=== PATIENT | male | born 1955 | race Caucasian/White ===

== ENCOUNTER → 2017-07-06 10:38 | Outpatient (CLI) | payer OTHER, SELFPAY ==
--- NOTE | 2017-07-06 10:53 | XR_ITS ---
XR chest 2V INDICATION: Contusion to left lung COMPARISON: PA and lateral chest 10/19/2011 FINDINGS: The cardiovascular structures are unremarkable. No mediastinal shift or hilar mass is evident. The lungs are well expanded and clear bilaterally. The costophrenic sulci are sharp. No significant bony anomalies are apparent other than a hypoplastic left first rib. IMPRESSION: Negative chest.
== END ==
PROVIDERS: PCP Family Medicine; Visit Provider Psychiatry & Neurology Sleep Medicine
DX: S27.321A Contusion of lung, unilateral, initial encounter (principal)
CPT/HCPCS: 71046

== ENCOUNTER → 2020-06-14 10:56 | Outpatient (CLI) | payer MEDICARE, SELFPAY ==
--- NOTE | 2020-06-14 11:02 | XR_ITS ---
PROCEDURE: XR CHEST PORTABLE CLINICAL HISTORY: COVID TEST COMPARISON: CR CXR2V XR chest 2V from 07/06/2017 FINDINGS: The cardiomediastinal silhouette and pulmonary vascularity are within normal limits. The lungs are clear without infiltrates, suspicious nodules, or pleural effusions. No acute bony abnormalities. IMPRESSION: No acute findings. Dictated by: Kamila Phoenix 06/14/2020 11:39 Kamila Phoenix in [facility] 06/14/2020 11:39
[2020-06-14 11:35] LABS: Basophils % 0.1 % (0.1-2.0); Eosinophils # 0.2 K/mm3 (0.0-0.4); Eosinophils % 1.5 % (0.1-12.0); Hematocrit 41.9 % (42.0-52.0); Hemoglobin 13.6 g/dL (14.1-18.0); Lymphocytes # 1.1 K/mm3 (0.7-4.5); Lymphocytes % 9.8 % (10-50); Mean Corpuscular HGB Conc 32.5 g/dL (31.8-35.4); Mean Corpuscular Hemoglobin 29.1 pg (27.0-31.2); Mean Corpuscular Volume 89.5 fl (80-94); Mean Platelet Volume 7.3 fl (7.4-10.4); Monocytes # 0.9 K/mm3 (0.1-1.0); Monocytes % 8.6 % (1.7-9.3); Neutrophils # 8.8 K/mm3 (1.8-7.8); Neutrophils % 80.1 % (37.0-80.0); Platelet Count 252 K/mm3 (142-424); Red Blood Count 4.68 M/mm3 (4.60-6.20); Red Cell Distribution Width 13.3 % (11.5-17.5); White Blood Count 10.9 K/mm3 (4.8-10.8)
== END ==
PROVIDERS: PCP Family Medicine; Visit Provider Nurse Practitioner
DX: Z20.822 Contact with and (suspected) exposure to COVID-19 (principal); D72.829 Elevated white blood cell count, unspecified
CPT/HCPCS: 36415; 71045; 85025; U0003

== ENCOUNTER → 2020-11-14 08:37 | Outpatient (CLI) | payer MEDICARE, SELFPAY ==
[2020-11-14 09:25] VITALS: PULSE 60; PULSE 66
== END ==
PROVIDERS: PCP Family Medicine; Visit Provider Internal Medicine Pulmonary Disease
DX: R06.00 Dyspnea, unspecified (principal)
CPT/HCPCS: 94060; 94618; 94640; 94726; 94729

== ENCOUNTER → 2020-11-15 06:17 | Outpatient (CLI) | payer MEDICARE, SELFPAY ==
--- NOTE | 2020-11-15 06:19 | CT_ITS ---
PROCEDURE: CT CHEST WO CON CLINICAL INDICATION: SOB COMPARISON: No exams were available for comparison TECHNIQUE: Axial images obtained with sagittal and coronal reformats. All CT scans at the facility use one or more dose reduction, viz: automated exposure control, ma/kV adjustment per patient size (including targeted exams where dose is matched to indication, i.e. head), or iterative reconstruction technique. FINDINGS: HEART AND MEDIASTINAL STRUCTURES: There is mild fusiform dilatation of the ascending aorta measuring 4.3 x 4.2 cm. Increased soft tissue density is present anterior to the ascending aorta and may be due to prominence of the right atrial appendage. Enhanced CT may confirm. Coronary artery calcifications are present. LUNGS AND PLEURAL SPACES: There is hyperinflation with attenuation of the peripheral pulmonary vessels consistent with small airway disease.. There is some mild bronchial thickening. Calcified granuloma is present in the left upper lobe. No suspicious nodules evident. No infiltrates or effusions. In the right upper lobe there is a small pneumatocele measuring approximately 5 mm with some minimal peripheral ground-glass attenuation around the cystic area. BONY STRUCTURES: No acute bony abnormalities apparent. UPPER ABDOMEN: Small hiatal hernia. 9 mm peripheral hypodensity right hepatic lobe segment 7 and may be due to small cyst or hemangioma. There are bilateral renal calculi measuring up to 4 mm on the left and 2 mm on the right. The kidneys are not completely imaged. ADDITIONAL FINDINGS: No other significant abnormalities. IMPRESSION: 1. Hyperexpansion and hyper lucency of the lungs along with mild bronchial thickening consistent with patient's known history of asthma. COPD and bronchitis would be included in the differential diagnosis. 2. Small pneumatocele in the right upper lobe with some minimal peripheral ground-glass attenuation. Consider 3 month follow-up to confirm stability. 3. Mild fusiform dilatation of the ascending aorta at 4.3 x 4.2 cm. 4. Anterior to the ascending aorta and on the right is a crescentic area of soft tissue density measuring 4 cm AP and 1.5 cm transverse and may be related to prominent right atrial appendage. This could be confirmed with enhanced CT of the chest. Adenopathy/mediastinal mass is included in the differential diagnosis. 5. Bilateral nephrolithiasis and other nonacute findings as described above. Dictated by: Chad Callaway MD 11/16/2020 09:47 Chad Callaway MD in [facility] 11/16/2020 09:47
== END ==
PROVIDERS: PCP Family Medicine; Visit Provider Internal Medicine Pulmonary Disease
DX: R05 Cough (principal); R06.02 Shortness of breath
CPT/HCPCS: 71250; 94762

== ENCOUNTER → 2020-11-23 17:11 | Outpatient (CLI) | payer MEDICARE, SELFPAY ==
[2020-11-23 18:02] LABS: Blood Urea Nitrogen 20 mg/dl (9-20); Estimated Glomerular Filt Rate 51 ml/min (>60); GFR (African American) 62 ML/MIN (>60)
[2020-11-23 18:33] LABS: Prostate Specific Ag, Diagnost 3.15 ng/ml (0.0-4.0)
== END ==
PROVIDERS: Visit Provider Family Medicine
DX: R93.89 Abnormal findings on diagnostic imaging of other specified body structures (principal); R97.20 Elevated prostate specific antigen [PSA]
CPT/HCPCS: 36415; 82565; 84153; 84520

== ENCOUNTER → 2020-11-25 11:16 | Outpatient (CLI) | payer MEDICARE, SELFPAY ==
--- NOTE | 2020-11-25 11:17 | CT_ITS ---
PROCEDURE: CT CHEST W CON CLINCAL INDICATION: abn ct/enhanced R06.02 CWS Follow-up abnormal chest CT COMPARISON: CT CT CHEST WO CON from 11/15/2020 TECHNIQUE: IV Contrast: 75ml Isovue 370 Axial images obtained with sagittal and coronal reformats. All CT scans at the facility use one or more dose reduction, viz: automated exposure control, ma/kV adjustment per patient size (including targeted exams where dose is matched to indication, i.e. head), or iterative reconstruction technique. FINDINGS: HEART AND MEDIASTINAL STRUCTURES: Previously there was a soft tissue density noted in the anterior mediastinum anterior to the ascending aorta. This does fill with contrast and represents mild prominence of the right atrial appendage extending anterior to the ascending aorta. No mediastinal adenopathy is evident. There is mild ectasia of the ascending thoracic aorta measuring up to 4 cm. No evidence of central pulmonary embolus LUNGS AND PLEURAL SPACES: There is hyperexpansion. Small pneumatocele is once again noted in the right upper lobe with some minimal haziness around the small pneumatocele not significantly changed. No new abnormalities are evident. BONY STRUCTURES: Mild degenerative change thoracic spine UPPER ABDOMEN: A 9 mm hypodensity once again noted in the right hepatic lobe segment 7 unchanged. Nonobstructing left renal calculi are noted ADDITIONAL FINDINGS: No other significant abnormalities. IMPRESSION: Previously noted soft tissue density in the right anterior mediastinum represents a prominent right atrial appendage Mild prominence of the ascending aorta at 4 cm No change small right upper lobe pneumatocele Dictated by: Chad Callaway MD 11/25/2020 14:10 Chad Callaway MD in [facility] 11/25/2020 14:10
== END ==
PROVIDERS: PCP Family Medicine; Visit Provider Family Medicine
DX: R63.4 Abnormal weight loss (principal); R93.89 Abnormal findings on diagnostic imaging of other specified body structures; R97.20 Elevated prostate specific antigen [PSA]
CPT/HCPCS: 71260; Q9967

== ENCOUNTER → 2021-05-19 08:19 | Outpatient (CLI) | payer MEDICARE, SELFPAY ==
--- NOTE | 2021-05-19 08:20 | CT_ITS ---
FINAL REPORT TECHNIQUE: Axial images were obtained from the lung apex to the mid abdomen by computed tomography. Coronal reformatted images were obtained. This study was performed with techniques to keep radiation doses as low as reasonably achievable, (ALARA). Individualized dose reduction techniques using automated exposure control or adjustment of mA and/or kV according to the patient's size were employed. CLINICAL HISTORY: pulmonary nodule COMPARISON: November 15, 2020 and November 25, 2020 FINDINGS: There is no axillary adenopathy. There is no hilar or mediastinal adenopathy. Heart size is normal. There is ectasia of the ascending aorta measuring 4.2 cm and previously measured 4.0 cm. There is no pericardial or pleural effusion. Limited images of the upper abdomen reveal several, small nonobstructing renal stones. The lung window images demonstrate mild emphysema. There is mild scarring. Again noted is a 6 mm pneumatocele in the right upper lobe with mild surrounding ground-glass opacities, stable. No new mass or nodule is identified. IMPRESSION: Again noted 6 mm pneumatocele in the right upper lobe with mild surrounding ground-glass opacities, stable. Ectasia of ascending aorta measuring 4.2 cm, was previously 4.0 cm. Reviewed, Interpreted and Dictated by Vicente Guthrie III, MD Transcribed by Sri Osei Authenticated by Vicente Guthrie III, MD on 05/19/2021 10:26:03 AM [facility]
== END ==
PROVIDERS: PCP Family Medicine; Visit Provider Internal Medicine Pulmonary Disease
DX: R91.1 Solitary pulmonary nodule (principal)
CPT/HCPCS: 71250

== ENCOUNTER → 2021-09-20 07:28 | Outpatient (CLI) | payer MEDICARE, SELFPAY ==
[2021-09-19 19:21] LABS: MANUAL DIFFERENTIAL MANUAL DIFFERENTIAL (MANUAL DIFF)
[2021-09-19 19:43] LABS: Alanine Aminotransferase 14 U/L (12-78); Albumin Level 3.8 g/dl (3.5-5.0); Albumin/Globulin Ratio 1.6 (1.1-1.8); Alkaline Phosphatase 78 U/L (38-126); Amylase 57 U/L (30-110); Anion Gap 13.1 mEq/L (5-15); Aspartate Amino Transferase 25 U/L (17-59); Blood Urea Nitrogen 27 mg/dl (9-20); Calcium 9.5 mg/dl (8.4-10.2); Carbon Dioxide 26 mmol/L (22.0-30.0); Chloride 106 mmol/L (98-107); Estimated Glomerular Filt Rate 47 ml/min (>60); GFR (African American) 57 ML/MIN (>60); Globulin 2.4 g/dL (1.3-3.2); Glucose 100 mg/dl (74-100); Lipase 135 U/L (23-300); Potassium 5.1 mmoL/L (3.5-5.1); Sodium 140 mmol/L (136-145); Total Protein,Serum 6.2 g/dl (6.3-8.2)
[2021-09-19 19:46] LABS: Basophils % 0.4 % (0.1-2.0); Eosinophils # 0.2 K/mm3 (0.0-0.4); Eosinophils % 4.2 % (0.1-12.0); Hematocrit 45.9 % (42.0-52.0); Hemoglobin 13.7 g/dL (14.1-18.0); Lymphocytes # 1.2 K/mm3 (0.7-4.5); Lymphocytes % 25.4 % (10-50); Mean Corpuscular HGB Conc 29.9 g/dL (31.8-35.4); Mean Corpuscular Hemoglobin 28.7 pg (27.0-31.2); Mean Corpuscular Volume 95.9 fl (80-94); Mean Platelet Volume 9.1 fl (7.4-10.4); Monocytes # 0.6 K/mm3 (0.1-1.0); Monocytes % 11.9 % (1.7-9.3); Neutrophils # 2.7 K/mm3 (1.8-7.8); Neutrophils % 58.2 % (37.0-80.0); Platelet Count 282 K/mm3 (142-424); Red Blood Count 4.78 M/mm3 (4.60-6.20); White Blood Count 4.6 K/mm3 (4.8-10.8)
[2021-09-19 19:48] LABS: Bilirubin,Total < 0.1 mg/dl (0.2-1.3)
[2021-09-19 20:14] LABS: Thyroid Stimulating Hormone 2.15 uIU/mL (0.465-4.68)
[2021-09-19 21:35] LABS: Eosinophils % 3 % (0-3); Lymphocytes % 27 % (10-50); Monocytes % 6 % (2-9); Neutrophils % 64 % (42-76); Nucleated Red Blood Cells 1; Platelet Estimate Normal; Total Cells Counted 100
== END ==
PROVIDERS: PCP Family Medicine; Visit Provider Family Medicine
DX: E11.9 Type 2 diabetes mellitus without complications (principal); R63.4 Abnormal weight loss
CPT/HCPCS: 80053; 82150; 83690; 84443; 85007; 85014; 85018; 85048; 85049

== ENCOUNTER → 2021-09-29 06:51 | Outpatient (CLI) | payer MEDICARE, SELFPAY ==
--- NOTE | 2021-09-29 06:54 | CT_ITS ---
FINAL REPORT TECHNIQUE: Axial images through the abdomen and pelvis were performed without intravenous contrast. Oral contrast was administered. This study was performed with techniques to keep radiation doses as low as reasonably achievable, (ALARA). Individualized dose reduction techniques using automated exposure control or adjustment of mA and/or kV according to the patient's size were employed. CLINICAL HISTORY: Weight loss, ORAL CONTRAST ONLY FINDINGS: Abdomen: The lung bases are clear. The liver parenchyma is homogeneous. The gallbladder is present. The spleen, pancreas, and adrenals are unremarkable. There are multitude of bilateral nonobstructing renal stones. Renal stones measure up to 4 mm. There is no hydronephrosis. There are advanced hypertrophic changes of degenerative disc disease in the lower lumbar spine at L3-L4, L4-L5 and L5-S1 with significant bilateral neural foraminal narrowing. Pelvis: The urinary bladder is unremarkable. The appendix is not visualized. There is no pelvic mass or inflammation. IMPRESSION: Bilateral nephrolithiasis. Advanced degenerative disc disease in lower lumbar spine with bilateral neural foraminal narrowing. Reviewed, Interpreted and Dictated by Suresh Batista MD Transcribed by Leonel Lu Authenticated and [facility]
== END ==
PROVIDERS: PCP Family Medicine; Visit Provider Family Medicine
DX: R63.4 Abnormal weight loss (principal); Z68.21 Body mass index [BMI] 21.0-21.9, adult
CPT/HCPCS: 74176

== ENCOUNTER → 2022-02-16 15:51 | Outpatient (CLI) | payer MEDICARE, SELFPAY ==
[2022-02-16 19:50] LABS: Alanine Aminotransferase 17 U/L (12-78); Albumin Level 4.1 g/dl (3.5-5.0); Albumin/Globulin Ratio 1.8 (1.1-1.8); Alkaline Phosphatase 92 U/L (38-126); Amylase 74 U/L (30-110); Anion Gap 11.1 mEq/L (5-15); Aspartate Amino Transferase 31 U/L (17-59); Bilirubin,Total 0.5 mg/dl (0.2-1.3); Blood Urea Nitrogen 24 mg/dl (9-20); Calcium 10.2 mg/dl (8.4-10.2); Carbon Dioxide 29 mmol/L (22.0-30.0); Chloride 106 mmol/L (98-107); Estimated Glomerular Filt Rate 43 ml/min (>60); GFR (African American) 53 ML/MIN (>60); Globulin 2.3 g/dL (1.3-3.2); Glucose 97 mg/dl (74-100); Lipase 156 U/L (23-300); Potassium 5.1 mmoL/L (3.5-5.1); Sodium 141 mmol/L (136-145); Total Protein,Serum 6.4 g/dl (6.3-8.2)
[2022-02-16 20:15] LABS: Prostate Specific Ag Screen 4.2 ng/ml (0.0-4.0)
== END ==
PROVIDERS: PCP Family Medicine; Visit Provider Family Medicine
DX: I10 Essential (primary) hypertension (principal); R63.4 Abnormal weight loss; Z12.5 Encounter for screening for malignant neoplasm of prostate
CPT/HCPCS: 80053; 82150; 83690; 84443; G0103

== ENCOUNTER → 2022-02-21 09:46 | Outpatient (CLI) | payer MEDICARE, SELFPAY ==
--- NOTE | 2022-02-21 09:51 | XR_ITS ---
FINAL REPORT CLINICAL HISTORY: weight loss FINDINGS: TWO-VIEW CHEST The heart size is normal. The mediastinum is normal. The lungs are hyperinflated consistent with COPD. There is no pneumothorax. IMPRESSION: COPD. Reviewed, Interpreted and Dictated by Vicente Guthrie III, MD Transcribed by Elaina Zamora Authenticated and [facility]
== END ==
PROVIDERS: PCP Family Medicine; Visit Provider Family Medicine
DX: R63.4 Abnormal weight loss (principal)
CPT/HCPCS: 71046

== ENCOUNTER → 2022-02-22 11:23 | Outpatient (CLI) | payer MEDICARE, OTHER, SELFPAY ==
--- NOTE | 2022-02-22 11:55 | US_ITS ---
FINAL REPORT CLINICAL HISTORY: neoplasm uncertain behavior bilateral groin, LLQ FINDINGS: US ABDOMINAL LIMITED Limited sonographic images were obtained of the soft tissues in the region of the umbilicus. No mass, hernia, or abnormal fluid collection is identified. IMPRESSION: No mass, hernia, or abnormal fluid collection. If indicated, CT may be helpful. Reviewed, Interpreted and Dictated by Vicente Guthrie III, MD Transcribed by Leonel Lu Authenticated and [facility]
--- NOTE | 2022-02-22 11:55 | US_ITS ---
FINAL REPORT CLINICAL HISTORY: neoplasm uncertain behavior bilateral groin, LLQ FINDINGS: US EXTREMITY, NONVASCULAR, LIMITED, ANATOMIC SPECIFIC Limited sonographic images were obtained of the right inguinal region. There are several borderline sized inguinal lymph nodes that are likely reactive. No hernia is identified. IMPRESSION: No hernia identified. Reviewed, Interpreted and Dictated by Vicente Guthrie III, MD Transcribed by Leonel Lu Authenticated and [facility]
--- NOTE | 2022-02-22 11:55 | US_ITS ---
FINAL REPORT CLINICAL HISTORY: neoplasm uncertain behavior bilateral groin, LLQ FINDINGS: US EXTREMITY, NONVASCULAR, LIMITED, ANATOMIC SPECIFIC Limited sonographic images were obtained of the left inguinal region. There is a probable inguinal hernia containing bowel. IMPRESSION: Probable left inguinal hernia containing bowel. Reviewed, Interpreted and Dictated by Vicente Guthrie III, MD Transcribed by Leonel Lu Authenticated and [facility]
[2022-02-22 12:02] LABS: Basophils % 0.5 % (0.1-2.0); Eosinophils # 0.2 K/mm3 (0.0-0.4); Eosinophils % 3.8 % (0.1-12.0); Hematocrit 44.4 % (42.0-52.0); Hemoglobin 14.2 g/dL (14.1-18.0); Lymphocytes % 21.3 % (10-50); Mean Corpuscular Hemoglobin 30.2 pg (27.0-31.2); Mean Corpuscular Volume 94.4 fl (80-94); Mean Platelet Volume 7.8 fl (7.4-10.4); Monocytes # 0.4 K/mm3 (0.1-1.0); Monocytes % 8.8 % (1.7-9.3); Neutrophils % 65.6 % (37.0-80.0); Platelet Count 276 K/mm3 (142-424); White Blood Count 4.5 K/mm3 (4.8-10.8)
[2022-02-22 12:37] LABS: Chloride 105 mmol/L (98-107); Potassium 4.5 mmoL/L (3.5-5.1); Sodium 141 mmol/L (136-145)
[2022-02-22 12:40] LABS: Alanine Aminotransferase 23 U/L (12-78); Albumin Level 3.8 g/dl (3.5-5.0); Albumin/Globulin Ratio 1.8 (1.1-1.8); Alkaline Phosphatase 89 U/L (38-126); Anion Gap 10.5 mEq/L (5-15); Aspartate Amino Transferase 31 U/L (17-59); Bilirubin,Total 0.3 mg/dl (0.2-1.3); Blood Urea Nitrogen 19 mg/dl (9-20); Calcium 9.4 mg/dl (8.4-10.2); Carbon Dioxide 30 mmol/L (22.0-30.0); Estimated Glomerular Filt Rate 51 ml/min (>60); GFR (African American) 61 ML/MIN (>60); Globulin 2.1 g/dL (1.3-3.2); Glucose 190 mg/dl (74-100); Total Protein,Serum 5.9 g/dl (6.3-8.2)
== END ==
PROVIDERS: PCP Family Medicine; Visit Provider Nurse Practitioner
DX: R10.32 Left lower quadrant pain (principal); D48.7 Neoplasm of uncertain behavior of other specified sites
CPT/HCPCS: 36415; 76705; 76882; 80053; 85025

== ENCOUNTER → 2022-02-27 09:55 | Outpatient (CLI) | payer MEDICARE, OTHER, SELFPAY ==
--- NOTE | 2022-02-27 09:57 | CT_ITS ---
FINAL REPORT TECHNIQUE: Axial CT images were performed from the lung bases through the pubic symphysis. Oral contrast was administered. Coronal reformats were submitted and reviewed. This study was performed with techniques to keep radiation doses as low as reasonably achievable (ALARA). Individualized dose reduction techniques using automated exposure control or adjustment of mA and/or kV according to the patient's size were employed. CLINICAL HISTORY: weight loss oral contrast COMPARISON: September 2021 FINDINGS: Abdomen: The lung bases are clear. There is questionable gastric wall thickening. The liver, spleen and pancreas are unremarkable. There is mild adrenal gland enlargement favoring hyperplasia or adenomas. There are several bilateral nonobstructing renal stones measuring less than 3 mm. There is no hydronephrosis. Pelvis: The appendix is not identified. There are no distal ureteral stones. The urinary bladder is unremarkable. The prostate is diffusely enlarged. There is a left fat containing femoral hernia with stranding of the fat consistent with edema/inflammation that has increased in size since the prior exam. IMPRESSION: Questionable gastric wall thickening. If indicated, upper endoscopy could further evaluate. Interval increase in a left femoral hernia containing fat with stranding within the fat. Bilateral nephrolithiasis. Reviewed, Interpreted and Dictated by Vicente Guthrie III, MD Transcribed by Leonel Lu Authenticated and [facility]
== END ==
PROVIDERS: PCP Family Medicine; Visit Provider Surgery
DX: R63.4 Abnormal weight loss (principal)
CPT/HCPCS: 74176

== ENCOUNTER 2022-03-01 07:15 | Day surgery (SDC) | payer MEDICARE, OTHER, SELFPAY ==
[2022-02-27 14:31] VITALS: BMI 18.3
[2022-03-01] VITALS (11 sets, daily range): BP systolic 105–140; BP diastolic 63–91; PULSE 57–69; RESP 12–18; TEMP 36.4–43; O2SAT 95–99
--- NOTE | 2022-03-01 08:42 | EXP.ANES.CKL ---
[facility] Disclaimer: The information contained in this section may have been updated after the patient was seen, as this information can be updated by other users. Medical History Asthma COPD (chronic obstructive pulmonary disease) Depression Dyspnea on exertion Elevated PSA Hyperlipemia Hypertension Mild persistent asthma Pneumatocele of lung Restless leg syndrome Weight loss Surgical History History of appendectomy History of colonoscopy History of elbow surgery History of right knee joint replacement Hx of discectomy Hx of laminectomy Family History Other Diabetes Hypertension Social History Smoking Status: Former smoker alcohol intake: never substance use type: denies use current occupational status: retired Travel in the last 8 weeks: Inside the [facility] ([place]) household members: spouse housing: house [facility] Anesthesia Checklist Patient Identification Patient Identification: Arm Band and Verbal (Name & ) Structural Data Admitted From: Home Planned Operative Procedure/s: Left Femoral Hernia Repair Consent for Planned Operative Procedure(s) Verified: Yes Verified Documents: Surgical Consent NPO Status Verified Time NPO: 00:00 Chart Verification Results Verified: CBC and BMP Additional verifications Anesthesia Reactions: Yes (nausea) Hx Blood Transfusions: No Blood Transfusion Reaction: No Airway Assessment C-Spine Mobility Assessed: Yes TMJ Mobility Assessed: Yes Dentition: Good Dentition Neurological Assessment Level of Consciousness: Awake, Alert and Appropriate Anesthesia Plan ASA Class: II Anesthesia Type: General
--- NOTE | 2022-03-01 10:40 | P.PNANES_ITS ---
[facility] Anesthesia Record Part I Anesthesia Record I Intake, IV Amount: 300 Estimated blood loss (mL): 10 Urine output (mL): 0 Blood Pressure: 117/68 SaO2: 99 Pulse Rate: 57 Respiratory Rate: 14 Temperature: 98.3 F Patient is:: Drowsy and Oral/Nasal airway Stable to PACU at:: 10:39
--- NOTE | 2022-03-01 10:59 | EXP.OP.NOTE ---
Date of procedure: 03/01/22 Pre-op Diagnosis:: Incarcerated left femoral hernia Post-op Diagnosis:: Same Procedure performed:: Open repair of incarcerated left inguinal hernia with medium Bard prefix mesh plug Excisional biopsy left inguinal lymph node Surgeon:: Vicente Bronson MD REEXAMINER:: Thang Del Valle Anesthesia: GETA Estimated blood loss (mL): 10 Clinical Note:: Patient is a 66-year-old male from [place] referred by Dr. Flanagan for inguinal hernia.? He was seen in the office 2 days ago on 02/28/2022. Patient states that about a week ago he had noted a swelling knot in the left groin area.? However, prior to that he was having some discomfort in the left lower abdomen.? He underwent ultrasounds on 02/22/22.? There are numerous reports of abdominal ultrasound and 2 different extremity ultrasounds.? Abdominal ultrasound is unremarkable.? Right extremity ultrasound reveals some borderline adenopathy.? Left extremity ultrasound reveals findings of probable left inguinal hernia.? Patient states that he has had about a 100 pound unintentional weight loss over a year.? He is scheduled to undergo colonoscopy for screening soon by Dr. Stephens in [place]. When he was seen in the office on 02/28/2022 he had tender mass in the left groin area. This was concerning for possible mass versus incarcerated hernia. He was sent for CT scan that day which revealed findings of left femoral hernia containing fat with stranding. Given the fact that this was a femoral hernia which appeared to be incarcerated plan was made for expeditious repair. Operative findings:: He had an incarcerated left femoral hernia with tiny defect containing fatty tissues. There was no apparent bowel. There was some minor inguinal adenopathy. Operative note:: Consent was obtained and patient was taken to the operating room. He was positioned in supine position. General anesthesia was induced. Aponte catheter was placed. Lower abdomen and perineum were prepped and draped in the standard surgical fashion. Due to the fact that it was unclear on examination of this was a true femoral hernia versus incarcerated direct inguinal hernia incision was made for traditional inguinal hernia repair. Dissection was carried down through subcutaneous tissues. Andreina's fascia was incised. Dissection was carried down to the external oblique muscle. The inguinal ligament was identified. This was consistent with true incarcerated femoral hernia. Plan was made to hopefully avoid opening the inguinal canal and peritoneum. Dissection was carried out inferiorly subcutaneously over the hernia. The neck of the hernia was protected. Once dissection was carried out around the hernia of the peritoneum of the hernia sac was sized. Careful inspection of the contents revealed edema of fatty tissues but no evidence of any bowel. This was able to be reduced. The defect was closed by placing medium sized Bard prefix mesh plug into the defect and securing it to the shelving edge of the inguinal ligament superiorly, lacunar ligament medially, and pectineus fascia inferiorly with 2-0 Prolene. Tissue over the mesh plug was closed with a couple of interrupted 0 Ethibond sutures. At this time inspection of the inguinal area revealed prominent lymph node. Given this finding and due to his weight loss decision was made for excisional biopsy. This was grasped with a [place]. It was dissected free from surrounding tissues using blunt dissection with limited use of Metzenbaum dissection. Small lymphatic vessels were clipped with micro hemoclips. Larger lymphatic was clipped and ligated with a Vicryl tie. This was sent off as a specimen. Femoral fascia was then closed with several interrupted 2-0 Vicryl sutures. Local anesthetic was infiltrated regionally as well as for an inguinal nerve block. There was good hemostasis. Andreina's fascia was closed with a running 3-0 Vicryl. Skin was closed with running 4-0 Monocryl. Dermabond and
--- NOTE | 2022-03-01 11:13 | SUR.PHASEI ---
[id number] called and gave detailed report to Nikko Watkins RN [id number] transported via stretcher to post op. vital signs stable. denies pain at this time. left in stable condition with Nikko Watkins RN at bedside.
[2022-03-01 14:02] LABS: Microscopic,Cath URINE MICROSCOPIC (MICROSCOPIC)
[2022-03-01 15:36] LABS: Appearance,Urine/Cath CLEAR (Clear); Bilirubin,Cath Negative (Negative); Blood, Urine/Cath Negative (Negative); Color,Urine/Cath YELLOW (Yellow); Glucose,Urine/Cath (UA) Negative (Negative); Ketones,Urine/Cath Negative (Negative); Leukocyte Esterase,Cath Negative (Negative); Nitrate,Cath Negative (Negative); PH,Urine/Cath 5.5 (5.0-8.5); Protein,Urine/Cath Negative (Negative); Urobilinogen,Cath 0.2 EU/dl (0.2)
[2022-03-01 15:54] LABS: Squamous Epithelial Ur./Cath Occasional #/hpf (0-5)
--- NOTE | 2022-03-02 11:10 | EXP.ANES.II ---
[facility] Anesthesia Record Part II Anesthesia Record Part II Discharge Time: 11:09 Destination: Outpatient Procedures PACU nurse assessment reviewed?: Yes Patient Condition:: Good Anesthesia Complications:: None Swallowing reflex intact?: Yes Cyanosis?: No Blood Pressure: 121/63 Pulse Rate: 68 Temperature: 98.2 F Mental Status: Alert & Oriented Pain level:: 0 Nausea and/or vomitting:: None Intake, IV Amount: 1,000
[2022-03-02 11:11] VITALS: BP 121/63; PULSE 68; TEMP 36.8
== END 2022-03-01 11:51 | disposition home or self-care (01) ==
PROVIDERS: PCP Family Medicine; Visit Provider Surgery
DX: Z79.899 Other long term (current) drug therapy; K41.30 Unilateral femoral hernia, with obstruction, without gangrene, not specified as recurrent; R59.0 Localized enlarged lymph nodes
CPT/HCPCS: 49553; 81001; 88305; 96374; J2405

== ENCOUNTER → 2022-03-20 13:16 | Outpatient (CLI) | payer MEDICARE, OTHER, SELFPAY ==
--- NOTE | 2022-03-20 13:21 | XR_ITS ---
FINAL REPORT CLINICAL HISTORY: low back pain FINDINGS: LUMBAR SPINE Five views demonstrate no acute fracture. There is advanced degenerative disc disease and facet arthropathy in the lower lumbar spine. There is no malalignment. IMPRESSION: Advanced degenerative changes as above. Reviewed, Interpreted and Dictated by Michelle Chapa MD Transcribed by Elaina Zamora Authenticated and [facility]
== END ==
PROVIDERS: PCP Family Medicine; Visit Provider Family Medicine
DX: M54.50 Low back pain, unspecified (principal)
CPT/HCPCS: 72110

== ENCOUNTER → 2022-07-02 23:22 | Outpatient (CLI) | payer MEDICARE, SELFPAY ==
[2022-07-02 18:19] LABS: Basophils % 0.3 % (0.1-2.0); Eosinophils # 0.2 K/mm3 (0.0-0.4); Eosinophils % 2.8 % (0.1-12.0); Hematocrit 44.5 % (42.0-52.0); Hemoglobin 14.1 g/dL (14.1-18.0); Lymphocytes % 17.8 % (10-50); Mean Corpuscular HGB Conc 31.8 g/dL (31.8-35.4); Mean Corpuscular Hemoglobin 28.8 pg (27.0-31.2); Mean Corpuscular Volume 90.7 fl (80-94); Mean Platelet Volume 8.8 fl (7.4-10.4); Monocytes # 0.4 K/mm3 (0.1-1.0); Monocytes % 6.8 % (1.7-9.3); Neutrophils # 3.9 K/mm3 (1.8-7.8); Neutrophils % 72.3 % (37.0-80.0); Platelet Count 378 K/mm3 (142-424); Red Blood Count 4.91 M/mm3 (4.60-6.20); Red Cell Distribution Width 13.1 % (11.5-17.5); White Blood Count 5.4 K/mm3 (4.8-10.8)
[2022-07-02 18:48] LABS: Chloride 101 mmol/L (98-107); Sodium 139 mmol/L (136-145)
[2022-07-02 18:51] LABS: Alanine Aminotransferase 14 U/L (12-78); Albumin Level 3.8 g/dl (3.5-5.0); Albumin/Globulin Ratio 1.5 (1.1-1.8); Alkaline Phosphatase 83 U/L (38-126); Amylase 71 U/L (30-110); Aspartate Amino Transferase 24 U/L (17-59); Bilirubin,Total 0.4 mg/dl (0.2-1.3); Blood Urea Nitrogen 18 mg/dl (9-20); Calcium 9.1 mg/dl (8.4-10.2); Carbon Dioxide 27 mmol/L (22.0-30.0); Estimated Glomerular Filt Rate 60 ml/min (>60); GFR (African American) 73 ML/MIN (>60); Globulin 2.5 g/dL (1.3-3.2); Glucose 175 mg/dl (74-100); Lipase 139 U/L (23-300); Total Protein,Serum 6.3 g/dl (6.3-8.2)
== END ==
PROVIDERS: PCP Nurse Practitioner; Visit Provider Nurse Practitioner
DX: R10.12 Left upper quadrant pain (principal); R10.9 Unspecified abdominal pain
CPT/HCPCS: 80053; 82150; 83690; 85025

== ENCOUNTER → 2022-07-27 12:47 | Outpatient (CLI) | payer MEDICARE, SELFPAY ==
--- NOTE | 2022-07-27 12:56 | US_ITS ---
FINAL REPORT CLINICAL HISTORY: .rt groin pain extending down around scrotal -- pt has had recent pump placed for perones syndrome-- 5 wks ago-- pain started today tho FINDINGS: Limited sonographic images of the right inguinal region were obtained. There is mild adenopathy considered to be reactive. Largest elongated node measures 4.3 x 0.4 cm. No fluid collection or obvious hernia is identified. IMPRESSION: Mild presumed reactive adenopathy. Reviewed, Interpreted and Dictated by Michelle Chapa MD Transcribed by Elaina Zamora Authenticated and [facility]
== END ==
PROVIDERS: PCP Family Medicine; Visit Provider Family Medicine
DX: R10.31 Right lower quadrant pain (principal)
CPT/HCPCS: 76882

== ENCOUNTER → 2022-07-27 23:34 | Outpatient (CLI) | payer MEDICARE, SELFPAY ==
[2022-07-27 17:38] LABS: Basophils % 0.2 % (0.1-2.0); Eosinophils # 0.1 K/mm3 (0.0-0.4); Eosinophils % 2.2 % (0.1-12.0); Hematocrit 41.1 % (42.0-52.0); Hemoglobin 13.4 g/dL (14.1-18.0); Lymphocytes # 0.8 K/mm3 (0.7-4.5); Lymphocytes % 11.7 % (10-50); Mean Corpuscular HGB Conc 32.5 g/dL (31.8-35.4); Mean Corpuscular Hemoglobin 29.2 pg (27.0-31.2); Mean Corpuscular Volume 89.8 fl (80-94); Mean Platelet Volume 9.4 fl (7.4-10.4); Monocytes # 0.4 K/mm3 (0.1-1.0); Monocytes % 6.4 % (1.7-9.3); Neutrophils # 5.1 K/mm3 (1.8-7.8); Neutrophils % 79.5 % (37.0-80.0); Platelet Count 463 K/mm3 (142-424); Red Blood Count 4.58 M/mm3 (4.60-6.20); White Blood Count 6.4 K/mm3 (4.8-10.8)
[2022-07-27 18:07] LABS: Anion Gap 16.4 mEq/L (5-15); Blood Urea Nitrogen 25 mg/dl (9-20); Carbon Dioxide 28 mmol/L (22.0-30.0); Chloride 97 mmol/L (98-107); Estimated Glomerular Filt Rate 75 ml/min (>60); GFR (African American) 90 ML/MIN (>60); Glucose 97 mg/dl (74-100); Potassium 4.4 mmoL/L (3.5-5.1); Sodium 137 mmol/L (136-145)
== END ==
PROVIDERS: PCP Family Medicine; Visit Provider Family Medicine
DX: R10.31 Right lower quadrant pain (principal)
CPT/HCPCS: 76882; 80048; 85025